=== PATIENT | female | born 1990 | race Caucasian/White ===

== ENCOUNTER 2017-11-04 06:31 | Inpatient (IN) ==
[~2017-11-04 06:31] MED LIST: ANCEF 1 GRAM IV PREMIX* 1 G/50 ML BAG IV ONE; LR 1000 ML IV 1,000 ML IV ONE
[2017-11-04] MEDS ORDERED: D5 1/2 NS 1000 ML 1,000 ML IV SCH (06:38)
[2017-11-04] MEDS ORDERED: ANCEF VIAL 1 GRAM 1 G in NS 50 ML IV + SPIKE MINIBAG* 50 ML IV PRN (06:38)
[2017-11-04] MEDS ORDERED: LR 1000 ML IV 1,000 ML IV ONE ×2 (06:59→08:12)
[2017-11-04] MEDS ORDERED: DURAMORPH ONE (07:00)
[2017-11-04] MEDS ORDERED: D5 1/2 NS 1L W PITOCIN 20 UNITS/L 20 UNITS/1,000 ML BAG IV ONE (07:00)
[2017-11-04] MEDS ORDERED: XYLOCAINE-MPF 1% ONE (07:00)
[2017-11-04 07:18] LABS: URIC ACID 5.3 mg/dL (2.6-6.0)
[2017-11-04] MEDS ORDERED: XYLOCAINE 1 % (PLAIN) ONE (07:28)
[2017-11-04] MEDS ORDERED: FENTANYL INJ 250 mcg ONE (08:16)
[2017-11-04 08:21] LABS: BILIRUBIN,URINE NEGATIVE (NEGATIVE); BLOOD/HEMOGLOBIN,URINE 2+ (NEGATIVE); GLUCOSE, URINE NEGATIVE (NEGATIVE); KETONES,URINE 1+ (NEGATIVE); LEUKOCYTE ESTERASE ,URINE 1+ (NEGATIVE); NITRITES,URINE NEGATIVE (NEGATIVE); PROTEIN,URINE 1+ (NEGATIVE); UROBILINOGEN,URINE NORMAL (NORMAL)
[2017-11-04 08:32] LABS: APPEARANCE,URINE HAZY (CLEAR); COLOR,URINE YELLOW (YELLOW)
[2017-11-04 08:33] LABS: AMORPHOUS SEDIMENT,UR 1+ /HPF (NEGATIVE); BACTERIA,URINE NEGATIVE /HPF (NEGATIVE); MUCUS,URINE FEW /HPF (NEGATIVE); SQUAMOUS EPITHELIAL CELL,UR MANY /HPF (NEGATIVE)
[2017-11-04] MEDS ORDERED: DILAUDID INJ ONE (09:20)
[2017-11-04] MEDS ORDERED: PHENERGAN INJ 25 MG IVP PRN (09:22)
[2017-11-04] MEDS ORDERED: BENADRYL INJ 50 MG VIAL IVP PRN (09:22)
[2017-11-04] MEDS ORDERED: DILAUDID INJ IVP PRN (09:22)
[2017-11-04] MEDS ORDERED: ZOFRAN INJ 4 MG VIAL IVP PRN ×2 (09:22→13:21)
[2017-11-04] MEDS ORDERED: REGLAN INJ 10 MG VIAL IVP PRN (09:22)
[2017-11-04] MEDS ORDERED: NEOSTIGMINE INJ ONE (09:30)
[2017-11-04] MEDS ORDERED: QUELICIN (OR ANECTINE) ONE (09:30)
[2017-11-04] MEDS ORDERED: ROBINUL ONE (09:30)
[2017-11-04] MEDS ORDERED: SUPRANE IN ONE (09:30)
[2017-11-04] MEDS ORDERED: NORCURON INJ 10 MG VIAL ONE (09:30)
[2017-11-04] MEDS ORDERED: PITOCIN ONE (09:30)
[2017-11-04] MEDS ORDERED: NS 1000 ML ONE (09:30)
[2017-11-04] MEDS ORDERED: ZOFRAN INJ 4 MG VIAL ONE (09:30)
[2017-11-04] MEDS ORDERED: VERSED ONE (09:30)
[2017-11-04] MEDS ORDERED: HYPERRHO S/D (or RHOGAM) IM PRN (09:41)
[2017-11-04] MEDS ORDERED: ADACEL or BOOSTRIX TDaP VACCINE IM ONE (09:41)
[2017-11-04] MEDS ORDERED: D5 1/2 NS 1000 ML 1,000 ML with PITOCIN 20 UNITS IV SCH ×2 (10:00)
[2017-11-04] MEDS ORDERED: HYPERRHO S/D (or RHOGAM) IM ONE ×2 (10:19→10:32)
[2017-11-04] MEDS: MORPHINE SULFATE PCA 30 MG IVP PRN ×2 (10:20→17:35)
[2017-11-04] MEDS: TORADOL 30 MG VIAL IVP PRN (17:40)
[2017-11-04] MEDS: ZANTAC PO SCH (21:31)
[2017-11-04] MEDS: MYLICON TAB 80 MG CHEW PO PRN (21:31)
[2017-11-05] MEDS: TORADOL 30 MG VIAL IVP PRN (03:45)
[2017-11-05 04:48] LABS: HEMATOCRIT 28.2 % (36.0-47.0); HEMOGLOBIN 9.8 g/dL (12.0-16.0)
[2017-11-05] MEDS ORDERED: MOTRIN TAB 800 MG PO PRN (07:43)
[2017-11-05] MEDS: PRENATAL PLUS PO SCH (09:24)
[2017-11-05] MEDS: COLACE CAP 100 MG PO SCH ×2 (09:24→20:52)
[2017-11-05] MEDS: ZANTAC PO SCH ×2 (09:24→20:52)
[2017-11-05] MEDS: PERCOCET TAB 5/325 MG PO PRN (09:25)
[2017-11-05] MEDS: BACTROBAN TOPICAL OINT TOP SCH ×2 (14:54→21:31)
[2017-11-05] MEDS: FERROUS GLUCONATE PO SCH (16:45)
[2017-11-05] MEDS: MYLICON TAB 80 MG CHEW PO PRN (20:52)
[2017-11-06] MEDS: PERCOCET TAB 5/325 MG PO PRN (01:40)
[2017-11-06] MEDS: FERROUS GLUCONATE PO SCH (06:24)
[2017-11-06] MEDS: BACTROBAN TOPICAL OINT TOP SCH (06:24)
[2017-11-06] MEDS ORDERED: DEPO-PROVERA CONTRACEPTIVE INJ IM ONE (07:18)
[2017-11-06] MEDS: PRENATAL PLUS PO SCH (08:15)
[2017-11-06] MEDS: COLACE CAP 100 MG PO SCH (08:15)
[2017-11-06] MEDS: ZANTAC PO SCH (08:16)
[2017-11-06 09:52] VITALS: BP 152/80
[2017-11-06] MEDS ORDERED: DEPO-PROVERA CONTRACEPTIVE INJ IM NR (10:20)
== END 2017-11-06 10:40 | disposition home or self-care (01) | DRG 765 ==
LOC: LD 06:31 → MED/SURG 09:51
PROVIDERS: ADMIT Specialist; ATTEND Specialist
DX: Z3A.38 38 weeks gestation of pregnancy; O99.824 Streptococcus B carrier state complicating childbirth; O36.0930 Maternal care for other rhesus isoimmunization, third trimester, not applicable or unspecified; O40.3XX0 Polyhydramnios, third trimester, not applicable or unspecified; N85.8 Other specified noninflammatory disorders of uterus; O34.211 Maternal care for low transverse scar from previous cesarean delivery; B95.1 Streptococcus, group B, as the cause of diseases classified elsewhere; Z37.0 Single live birth; O13.3 Gestational [pregnancy-induced] hypertension without significant proteinuria, third trimester
CPT/HCPCS: 36415; 80048; 81001; 83615; 84450; 84460; 84550; 85014; 85018; 85025; 85384; 85461; 85610; 85730; 86592; 86850; 86900; 86901; 87086; 90715; A4216; A4222; S0197; J0330; J0690; J1050; J1170; J1885; J2250; J2271; J2405; J2590; J2710; J2790; J3010; J3490; J7030; J7120

== ENCOUNTER 2025-03-03 11:20 | Inpatient (IN) ==
[2025-03-03] MEDS ORDERED: REGLAN INJ 10 MG VIAL IVP PRN (12:48)
[2025-03-03] MEDS: DECADRON INJ ONE (12:53)
[2025-03-03] MEDS: PRECEDEX INJ VIAL ONE (12:54)
[2025-03-03] MEDS: PITOCIN ONE (12:54)
[2025-03-03] MEDS: TORADOL 30 MG VIAL ONE (12:54)
[2025-03-03] MEDS: MARCAINE SPINAL ONE (12:54)
[2025-03-03] MEDS: ZOFRAN INJ 4 MG VIAL ONE (12:54)
[2025-03-03] MEDS: XYLOCAINE 2 % (PLAIN) ONE (12:54)
[2025-03-03] MEDS: OFIRMEV IV 1000 MG VIAL 1,000 MG/100 ML VIAL IV ONE (12:54)
[2025-03-03] MEDS: REGLAN INJ 10 MG VIAL ONE (12:56)
[2025-03-03] MEDS: PEPCID 20 MG VIAL ONE (12:57)
[2025-03-03] MEDS ORDERED: LR 1,000 ML IV 1,000 ML IV SCH (13:00)
[2025-03-03] MEDS: LR 1,000 ML IV 1,300 ML IV PRN (13:20)
[2025-03-03] MEDS: LR 1,000 ML IV 1,000 ML IV ONE ×2 (13:23→13:38)
[2025-03-03] MEDS: NS 100 ML IV 100 ML ONE (13:24)
[2025-03-03] MEDS: ZOFRAN INJ 4 MG VIAL IVP PRN (13:28)
[2025-03-03] MEDS: PEPCID 20 MG VIAL IVP PRN (13:30)
[2025-03-03] MEDS: REGLAN INJ 10 MG VIAL IVP PRN (13:31)
[2025-03-03] MEDS ORDERED: DILAUDID INJ IVP PRN (14:01)
[2025-03-03] MEDS ORDERED: BENADRYL INJ 50 MG VIAL IVP PRN (14:01)
[2025-03-03] MEDS ORDERED: ZOFRAN INJ 4 MG VIAL IVP PRN (14:01)
[2025-03-03] MEDS: ANCEF VIAL 1 GRAM IVP ONE (14:02)
[2025-03-03] MEDS: ANCEF VIAL 1 GRAM IV PRN (14:14)
[2025-03-03] MEDS: ANCEF VIAL 1 GRAM ONE (14:16)
[2025-03-03] MEDS ORDERED: PRECEDEX INJ VIAL PRN (14:32)
[2025-03-03] MEDS: NEO-SYNEPHRINE INJ ONE (14:39)
[2025-03-03] MEDS: ROBINUL ONE (14:40)
[2025-03-03] MEDS: NEO-SYNEPHRINE INJ IVP PRN (14:41)
[2025-03-03] MEDS: ROBINUL IVP PRN (14:41)
[2025-03-03] MEDS: DECADRON INJ IVP PRN (14:42)
[2025-03-03] MEDS: EPHEDRINE SULFATE INJ IVP PRN (14:49)
[2025-03-03] MEDS ORDERED: PITOCIN IVP PRN (15:03)
[2025-03-03] MEDS: TORADOL 30 MG VIAL IVP PRN (15:09)
[2025-03-03] MEDS: OFIRMEV IV 1000 MG VIAL 1,000 MG/100 ML VIAL IV PRN (15:09)
[2025-03-03] MEDS: VERSED ONE (15:11)
[2025-03-03] MEDS: VERSED IVP PRN (15:12)
[2025-03-03] MEDS: OXYTOCIN 20 UNIT/1,000 ML-NS 20 UNIT/1,000 ML PLAST..BAG IV SCH (16:32)
[2025-03-03] MEDS: OFIRMEV IV 1000 MG VIAL 1,000 MG/100 ML VIAL IV SCH (17:06)
[2025-03-03] MEDS: TORADOL 30 MG VIAL IVP SCH (17:06)
[2025-03-03] MEDS: ADACEL or BOOSTRIX TDaP VACCINE IM ONE (17:12)
[2025-03-03] MEDS: PERCOCET TAB 5/325 MG PO PRN (18:30)
[2025-03-03] MEDS: DILAUDID INJ IVP PRN (20:50)
[2025-03-04] MEDS: MYLICON TAB 80 MG CHEW PO PRN (01:04)
[2025-03-04] MEDS: DILAUDID INJ IVP PRN (02:51)
[2025-03-04] MEDS: MOTRIN TAB 800 MG PO PRN (07:05)
[2025-03-04] MEDS: PRENATAL PLUS PO SCH (08:51)
[2025-03-04] MEDS ORDERED: PEPCID TAB 40 MG PO PRN (09:30)
[2025-03-04] MEDS: NORMODYNE TAB 200 MG PO SCH (10:46)
[2025-03-04] MEDS: PROTONIX TAB 40 MG PO SCH (10:46)
[2025-03-04] MEDS: HYPERRHO S/D (or RHOGAM) IM PRN (15:50)
[2025-03-04] MEDS ORDERED: ZOFRAN INJ 4 MG VIAL ONE (17:34)
[2025-03-04] MEDS: ZOFRAN INJ 4 MG VIAL IVP PRN (17:38)
[2025-03-04 18:13] VITALS: O2SAT 98
[2025-03-04] MEDS ORDERED: PHENERGAN INJ 25 MG IM PRN (18:54)
[2025-03-05 08:25] VITALS: BP 133/71; PULSE 100; TEMP 98.4
[2025-03-05 11:21] VITALS: RESP 20
== END 2025-03-05 11:00 | disposition home or self-care (01) | DRG 784 ==
LOC: LD 12:15 → MED/SURG 16:15
PROVIDERS: ADMIT Obstetrics & Gynecology Obstetrics; ATTEND Obstetrics & Gynecology Obstetrics
DX: O13.3 Gestational [pregnancy-induced] hypertension without significant proteinuria, third trimester; N85.8 Other specified noninflammatory disorders of uterus; Z01.812 Encounter for preprocedural laboratory examination; O99.113 Other diseases of the blood and blood-forming organs and certain disorders involving the immune mechanism complicating pregnancy, third trimester; Z30.2 Encounter for sterilization; O34.211 Maternal care for low transverse scar from previous cesarean delivery; Z37.0 Single live birth; Z3A.38 38 weeks gestation of pregnancy